=== PATIENT | male | born 1975 | race Caucasian/White ===

== ENCOUNTER 2016-05-27 08:49 | Emergency (ER) | payer SELFPAY ==
[~2016-05-27] VITALS: Ht 175.3 cm; Wt 81.6 kg
[2016-05-27 09:33] VITALS: BP 144/71
== END 2016-05-27 10:33 | disposition home or self-care (01) ==
LOC: ER 08:52
DX: S92.352A Displaced fracture of fifth metatarsal bone, left foot, initial encounter for closed fracture (principal); X58.XXXA Exposure to other specified factors, initial encounter; Y93.67 Activity, basketball; Y92.89 Other specified places as the place of occurrence of the external cause; Y99.8 Other external cause status
CPT/HCPCS: 29515; 73610; 73630; 99284; A4606; Z7610

== ENCOUNTER 2017-04-19 16:41 | Emergency (ER) | payer OTHER ==
[~2017-04-19] VITALS: Ht 172.7 cm; Wt 68.0 kg
--- NOTE | 2017-04-19 16:57 | NUR ---
PT AMBULATORY TO ER BED 13. PRESENTS W/ R KNEE PAIN AND SWELLING S/P HEAVY WOOD FELL ON TOP OF HIS KNEE AT AROUND 1400 TODAY. UNABLE TO BENT KNEE. NO OTHER TRAUMA ENDORSED. AWAITING MD ALEJO.
--- NOTE | 2017-04-19 17:11 | NUR ---
ARASH MALONEY AT BEDSIDE FOR EVAL.
--- NOTE | 2017-04-19 17:20 | NUR ---
RADIOLOGY AT BEDSIDE FOR R KNEE XRAY.
--- NOTE | 2017-04-19 18:53 | NUR ---
KNEE IMOBILIZER APPLIED. Patient discharged to home in stable condition. Written and verbal after care instructions given. Patient verbalizes understanding of instruction.
[2017-04-19 18:55] VITALS: BP 115/60
== END 2017-04-19 18:56 | disposition home or self-care (01) ==
LOC: ER 16:45
DX: S80.01XA Contusion of right knee, initial encounter (principal); S90.32XA Contusion of left foot, initial encounter; W03.XXXA Other fall on same level due to collision with another person, initial encounter; Y93.89 Activity, other specified; Y92.59 Other trade areas as the place of occurrence of the external cause; Y99.0 Civilian activity done for income or pay
CPT/HCPCS: 29505; 73564; 99284; A4606; Z7610